=== PATIENT | male | born 1995 | race Caucasian/White ===

== ENCOUNTER 2017-10-20 13:36 | Emergency (ER) | payer BC, OTHER ==
[~2017-10-20] VITALS: Ht 177.8 cm; Wt 94.2 kg
[~2017-10-20 13:36] MED LIST: RTL20 PO
[2017-10-20 13:38] VITALS: TEMP 37.4; Ht 177.8 cm; Wt 94.2 kg
[2017-10-20] MEDS ORDERED: KETOROLAC TROMETHAMINE 30 MG/ML VIAL IV STA (13:47)
[2017-10-20] MEDS ORDERED: SODIUM CHLORIDE 0.9% 1000ML 2,000 ML IV STA (13:47)
[2017-10-20] MEDS ORDERED: ACETAMINOPHEN 500 MG TAB PO STA (13:47)
[2017-10-20] MEDS ORDERED: ONDANSETRON INJ 2 MG/ML 2 ML VIAL IV STA (13:47)
--- NOTE | 2017-10-20 14:00 | EMERGENCY ROOM VISIT NOTE ---
History Report prepared by Monico: Vicky Marroquin Under the Supervision of: Dr. Augustine Bravo M.D. First contact with patient: 13:41 Chief Complaint: VOMITING Stated Complaint: VOMITING,CHILLS Nursing Triage Summary: pt reports vomiting since last night dry heaves now, headache and chills. abd pain all over History of Present Illness The patient is a 22 year old male who presents to the Emergency Room with complaints of constant abdominal pain starting 16 hours ago. The pain is present all over his abdomen. He currently rates his discomfort as a 10/10 in severity. He was unable to sleep last night because he was vomiting. He spent the night in the bathroom. He has had nausea, subjective fever, and chills. He has a sore throat. He denies any diarrhea or back pain. He had been sick recently with a cough and some cold symptoms. His mother has had similar cold symptoms. He has not been around anybody with the stomach flu. He notes that he ate a bunch of food yesterday and can not rule out a food borne illness as the cause of his symptoms. He denies any medical problems. Source of History: patient, parent Onset: 16 hours ago Position: abdomen Symptom Intensity: 10/10 Quality: other (pain) Timing: constant Associated Symptoms: + fevers, + chills, + sorethroat, + cough, + nausea, + vomiting, No back pain, No diarrhea Review of Systems See HPI for pertinent positives & negatives. A total of 10 systems reviewed and were otherwise negative. Past Medical & Surgical Medical Problems: (1) No chronic problems Family History Cancer Diabetes mellitus FH: heart disease FHx: lung disease Hypertension Seizures Social History Smoking Status: Never Smoker Marital Status: single Occupation Status: unemployed Current/Historical Medications Scheduled Ondasetron Odt (Zofran Odt), 4 MG SL Q6H Allergies Uncoded Allergies: AMOXICILLIN ? (Allergy, Unknown, 02/24/04) Physical Exam Vital Signs Date Time Temp Pulse Resp B/P (MAP) Pulse Ox O2 Delivery O2 Flow Rate FiO2 10/20/17 16:06 91 134/79 98 10/20/17 15:22 102 112/63 97 Room Air 10/20/17 13:38 37.4 112 18 133/73 98 Room Air Physical Exam GENERAL: Patient is in no acute distress. HEENT: No acute trauma, normocephalic atraumatic, mucous membranes moist, no nasal congestion, no scleral icterus. NECK: No stridor, no adenopathy, no meningismus, trachea is midline. LUNGS: Clear to auscultation bilaterally, no wheeze, no rhonchi, breath sounds equal. HEART: Tachycardic with a regular rhythm. No murmurs. ABDOMEN: Soft, diffusely mildly tender, bowel sounds positive, no hernias, no peritonitis. EXTREMITIES: No cyanosis or edema, full range of motion of all the joints without pain or difficulty, no signs for acute trauma. NEUROLOGIC: Oriented x 3, no acute motor or sensory deficits, no focal weakness. SKIN: No rash, no jaundice, no diaphoresis. Medical Decision & Procedures ER Provider Diagnostic Interpretation: X-ray results as stated below per interpretation by me and the radiologist: PA CHEST WITH ABDOMINAL SERIES CLINICAL HISTORY: Generalized abdominal pain. Vomiting. FINDINGS: A PA chest radiograph is obtained. No prior studies are available for comparison at the time of dictation. The cardiomediastinal silhouette is unremarkable. The lungs and pleural spaces are clear. No pneumothorax is seen. The bony thorax is grossly intact. Supine and erect abdominal radiographs are obtained. No prior studies are available for comparison at the time of dictation. There is a nonobstructed abdominal bowel gas pattern. Moderate colonic fecal retention is observed. No evidence of intraperitoneal free air is seen. There are no abnormal abdominal calcifications. The lumbosacral spine and bony pelvis appear intact. There is minimal lumbar scoliosis. IMPRESSION: 1. No active disease in the chest. 2. Nonobstructed abdominal bowel gas pattern. Electronically signed by: Augustine Barrera M.D. 10/20/2017 2:48 PM Dictated Date/Time: 10/20/2017 2:47 PM Laboratory Results 10/20/17 14:00 Red Blood Count 6.02, Mean Corpuscular Volume 82.7, Mean Corpuscular Hemoglobin 29.6, Mean Corpuscular Hemoglobin Concent 35.7, Mean Platelet Volume 10.6, Neutrophils (%) (Auto) 92.8, Lymphocytes (%) (Auto) 2.5, Monocytes (%) (Auto) 4.3, Eosinophils (%) (Auto) 0.0, Basophils (%) (Auto) 0.1, Neutrophils # (Auto) 12.65, Lymphocytes # (Auto) 0.34, Monocytes # (Auto) 0.59, Eosinophils # (Auto) 0.00, Basophils # (Auto) 0.01 10/20/17 14:00 Test 10/20/17 14:00 White Blood Count 13.63 K/uL (4.8-10.8) Red Blood Count 6.02 M/uL (4.7-6.1) Hemoglobin 17.8 g/dL (14.0-18.0) Hematocrit 49.8 % (42-52) Mean Corpuscular Volume 82.7 fL (80-100) Mean Corpuscular Hemoglobin 29.6 pg (25-34) Mean Corpuscular Hemoglobin Concent 35.7 g/dl (32-36) Platelet Count 193 K/uL (130-400) Mean Platelet Volume 10.6 fL (7.4-10.4) Neutrophils (%) (Auto) 92.8 % Lymphocytes (%) (Auto) 2.5 % Monocytes (%) (Auto) 4.3 % Eosinophils (%) (Auto) 0.0 % Basophils (%) (Auto) 0.1 % Neutrophils # (Auto) 12.65 K/uL (1.4-6.5) Lymphocytes # (Auto) 0.34 K/uL (1.2-3.4) Monocytes # (Auto) 0.59 K/uL (0.11-0.59) Eosinophils # (Auto) 0.00 K/uL (0-0.5) Basophils # (Auto) 0.01 K/uL (0-0.2) RDW Standard Deviation 37.8 fL (36.4-46.3) RDW Coefficient of Variation 12.8 % (11.5-14.5) Immature Granulocyte % (Auto) 0.3 % Immature Granulocyte # (Auto) 0.04 K/uL (0.00-0.02) Urine Color ORANGE Urine Appearance CLEAR (CLEAR) Urine pH 5.0 (4.5-7.5) Urine Specific [place] 1.033 (1.000-1.030) Urine Protein TRACE (NEG) Urine Glucose (UA) NEG (NEG) Urine Ketones TRACE (NEG) Urine Occult Blood NEG (NEG) Urine Nitrite NEG (NEG) Urine Bilirubin NEG (NEG) Urine Urobilinogen NEG (NEG) Urine Leukocyte Esterase TRACE (NEG) Urine WBC (Auto) 1-5 /hpf (0-5) Urine RBC (Auto) 0-4 /hpf (0-4) Urine Hyaline Casts (Auto) 10-30 /lpf (0-5) Urine Epithelial Cells (Auto) 20-30 /lpf (0-5) Urine Bacteria (Auto) NEG (NEG) Anion Gap 7.0 mmol/L (3-11) Est Creatinine Clear Calc Drug Dose 123.5 ml/min Estimated GFR () 111.4 Estimated GFR (Non- 96.1 BUN/Creatinine Ratio 17.3 (10-20) Calcium Level 9.2 mg/dl (8.5-10.1) Total Bilirubin 2.6 mg/dl (0.2-1) Aspartate Amino Transf (AST/SGOT) 21 U/L (15-37) Alanine Aminotransferase (ALT/SGPT) 46 U/L (12-78) Alkaline Phosphatase 84 U/L (45-117) Total Protein 8.5 gm/dl (6.4-8.2) Albumin 4.6 gm/dl (3.4-5.0) Globulin 3.9 gm/dl (2.5-4.0) Albumin/Globulin Ratio 1.2 (0.9-2) Lipase 156 U/L (73-393) Laboratory results reviewed by me. Medications Administered Medications (Trade) Dose Ordered Sig/Je Route Start Time Stop Time Status Last Admin Dose Admin Sodium Chloride 2,000 ml @ 999 mls/hr Q2H1M STAT IV 10/20/17 13:47 10/20/17 15:47 DC 10/20/17 14:03 999 MLS/HR Ondansetron HCl (Zofran Inj) 4 mg NOW STAT IV 10/20/17 13:47 10/20/17 13:48 DC 10/20/17 14:03 4 MG Ketorolac Tromethamine (Toradol Inj) 30 mg NOW STAT IV 10/20/17 13:47 10/20/17 13:48 DC 10/20/17 14:04 30 MG Acetaminophen (Tylenol Tab) 1,000 mg NOW STAT PO 10/20/17 13:47 10/20/17 13:48 DC 10/20/17 14:04 1,000 MG Ondansetron HCl (ZOFRAN ODT 4MG Home Pack) 1 homepack UD ONCE PO 10/20/17 15:45 10/20/17 15:46 DC 10/20/17 15:50 1 HOMEPACK ED Course 1341: The patient was evaluated in room B10. A complete history and physical exam was performed. 1347: Acetaminophen 1000 mg PO, Toradol Inj 30 mg IV, Zofran Inj 4 mg IV, NSS 2000 ml @ 999 mls/hr IV. 1533: I reevaluated the patient. He is feeling better. I discussed results and discharge instructions: He verbalized understanding and agreement. The patient is ready for discharge. 1545: Ondansetron HCl 1 homepack PO. Medical Decision Differential diagnoses considered include dehydration, electrolyte imbalance, appendicitis, pancreatitis, biliary colic, foodborne illness, bowel obstruction , viral illness. There is a mild leukocytosis at 13,000, this could be consistent with infection or his vomiting. No worrisome anemia. No significant electrolyte abnormality or kidney failure. There was an isolated bilirubin elevation which is non- specific. No evidence for hepatitis. No evidence for pancreatitis. Urinalysis shows some contamination, no obvious infection. Obstruction series shows no pneumonia, free air or bowel obstruction. On exam, there was no peritonitis. The patient was not toxic in appearance. The patient received IV saline, IV Zofran, IV Toradol and oral Tylenol. He feels improved. Reexam of his abdomen reveals some mild diffuse tenderness-no localized discomfort over the right lower quadrant. I think the patient can be discharged. This illness is likely viral or food borne. I talked about the possibility of early appendicitis with the family. The patient is going to rest, hydration was encouraged. [place] diet was encouraged. If worsening, if having pain moving to the right lower quadrant, he will return for reassessment. Medication Reconcilliation Current Medication List: was personally reviewed by me Blood Pressure Screening Patient's blood pressure: Elevated blood pressure Blood pressure disposition: Elevated BP felt to be situational Impression Primary Impression: Nausea and vomiting Additional Impression: Diffuse abdominal pain Scribe Attestation The scribe's documentation has been prepared under my direction and personally reviewed by me in its entirety. I confirm that the note above accurately reflects all work, treatment, procedures, and medical decision making performed by me. Departure Information Dispostion Home / Self-Care Prescriptions Ondasetron Odt (ZOFRAN ODT) 4 Mg Tab 4 MG SL Q6H for Nausea, #10 TAB Prov: Augustine Bravo M.D. 10/20/17 Referrals Jeff Jasso M.D. (PCP) Forms HOME CARE DOCUMENTATION FORM, IMPORTANT VISIT INFORMATION Patient Instructions My [facility] [address] Additional Instructions bland diet---crackers, soup, toast, gatorade rest tylenol for pain and fever and aches zofran 1-2 tab every 6 hours for nausea return if worsening early appendicitis is still possible so return for worsening symptoms, if not improving or if pain is moving to the right lower side as discussed Problem Qualifiers
[2017-10-20 14:12] LABS: BASO % 0.1 %; BASO ABS # 0.01 K/uL (0-0.2); HEMATOCRIT 49.8 % (42-52); HEMOGLOBIN 17.8 g/dL (14.0-18.0); IG# 0.04 K/uL (0.00-0.02); LYMPH % 2.5 %; LYMPH ABS # 0.34 K/uL (1.2-3.4); MEAN CELL VOLUME 82.7 fL (80-100); MEAN CORPUSCULAR HEMOGLOBIN 29.6 pg (25-34); MEAN CORPUSCULAR HGB CONC 35.7 g/dl (32-36); MEAN PLATELET VOLUME 10.6 fL (7.4-10.4); MONO % 4.3 %; MONO ABS # 0.59 K/uL (0.11-0.59); NEUT % 92.8 %; NEUT ABS # 12.65 K/uL (1.4-6.5); PLATELET COUNT 193 K/uL (130-400); RED CELL DISTRIBUTION WIDTH CV 12.8 % (11.5-14.5); RED CELL DISTRIBUTION WIDTH SD 37.8 fL (36.4-46.3); WHITE BLOOD COUNT 13.63 K/uL (4.8-10.8)
[2017-10-20 14:29] LABS: ALBUMIN 4.6 gm/dl (3.4-5.0); CALCIUM 9.2 mg/dl (8.5-10.1); CREATININE 1.1 mg/dl (0.60-1.40); POTASSIUM 3.6 mmol/L (3.5-5.1)
[2017-10-20 14:32] LABS: TOTAL PROTEIN 8.5 gm/dl (6.4-8.2)
--- NOTE | 2017-10-20 14:49 | DIAGNOSTIC IMAGING REPORT ---
PA CHEST WITH ABDOMINAL SERIES CLINICAL HISTORY: Generalized abdominal pain. Vomiting. FINDINGS: A PA chest radiograph is obtained. No prior studies are available for comparison at the time of dictation. The cardiomediastinal silhouette is unremarkable. The lungs and pleural spaces are clear. No pneumothorax is seen. The bony thorax is grossly intact. Supine and erect abdominal radiographs are obtained. No prior studies are available for comparison at the time of dictation. There is a nonobstructed abdominal bowel gas pattern. Moderate colonic fecal retention is observed. No evidence of intraperitoneal free air is seen. There are no abnormal abdominal calcifications. The lumbosacral spine and bony pelvis appear intact. There is minimal lumbar scoliosis. IMPRESSION: 1. No active disease in the chest. 2. Nonobstructed abdominal bowel gas pattern. Electronically signed by: Augustine Barrera M.D. 10/20/2017 2:48 PM Dictated Date/Time: 10/20/2017 2:47 PM
[2017-10-20] MEDS ORDERED: ONDA4TAB10 SL (15:41)
[2017-10-20] MEDS ORDERED: ONDANSETRON HOME PACK 4MG OD TAB PO ONE (15:45)
[2017-10-20 16:06] VITALS: BP 134/79; PULSE 91; O2SAT 98
== END 2017-10-20 16:07 | disposition home or self-care (01) ==
LOC: C.EDB 13:37
DX: R10.84 Generalized abdominal pain (principal); R11.2 Nausea with vomiting, unspecified; D72.829 Elevated white blood cell count, unspecified; R03.0 Elevated blood-pressure reading, without diagnosis of hypertension; Z83.3 Family history of diabetes mellitus; Z82.49 Family history of ischemic heart disease and other diseases of the circulatory system; Z83.6 Family history of other diseases of the respiratory system; Z82.0 Family history of epilepsy and other diseases of the nervous system

== ENCOUNTER → 2017-12-14 | Outpatient (CLI) | payer OTHER ==
[~2017-12-14] MED LIST changes: +ONDA4TAB10 SL; -RTL20 PO
--- NOTE | 2017-12-14 15:58 | DIAGNOSTIC IMAGING REPORT ---
R HAND MIN 3 VIEWS ROUTINE CLINICAL HISTORY: SWELLING OF RIGHT INDEX FINGER COMPARISON: None FINDINGS: Alignment of the right hand is anatomic. There is soft tissue swelling of the right second digit. No acute fracture is identified. IMPRESSION: 1. No acute fracture or dislocation within the right hand. 2. Right second digit soft tissue swelling. Electronically signed by: Carlyle Kumar M.D. 12/14/2017 3:56 PM Dictated Date/Time: 12/14/2017 3:55 PM
== END | disposition home or self-care (01) ==
LOC: C.RAD 15:36
PROVIDERS: ATTEND Family Medicine
DX: M79.89 Other specified soft tissue disorders (principal); Z88.0 Allergy status to penicillin